=== PATIENT | male | born 1955 | race African-American/Black ===

== ENCOUNTER → 2019-11-05 | Outpatient (CLI) | payer OTHER ==
--- NOTE | 2019-11-05 17:06 | RAD ---
LUMBAR SPINE 2-3V DATE: 11/05/2019 12:00 AM INDICATION: Reason: LOW BACK PAIN. NEUROPATHY IN THE UPPER AND LOWER EXTREMITIES. / Spl. Instructions: / History: COMPARISON: None. FINDINGS: Five non-rib bearing lumbar-type vertebral bodies are present. Bones/Alignment: No evidence of acute compression fracture. There is no listhesis. Joints: Mild multilevel degenerative disc disease. Lower lumbar facet arthropathy. Miscellaneous: Aortoiliac atherosclerotic disease IMPRESSION: No evidence of acute compression fracture. Mild lumbar spondylosis. Electronically signed by: Harry Luna MD (11/05/2019 5:04 PM) [id number]
== END | disposition home or self-care (01) ==
LOC: LAB 14:01
PROVIDERS: ATTEND Family Medicine
DX: M47.816 Spondylosis without myelopathy or radiculopathy, lumbar region (principal); M51.36 Other intervertebral disc degeneration, lumbar region; I70.0 Atherosclerosis of aorta
CPT/HCPCS: 72100